=== PATIENT | female | born 1975 | race Caucasian/White ===

== ENCOUNTER → 2019-12-08 | Outpatient (CLI) | payer OTHER | LOC: MC.RAD 15:45 | DX: Z12.31 Encounter for screening mammogram for malignant neoplasm of breast (principal) ==

== ENCOUNTER → 2021-01-02 | Outpatient (CLI) | payer OTHER | LOC: MC.RAD 12-25 13:00 | DX: Z12.31 Encounter for screening mammogram for malignant neoplasm of breast (principal) ==